=== PATIENT | female | born 1965 | race Caucasian/White ===

== ENCOUNTER 2019-08-09 23:53 | Inpatient (IN) | payer MEDICAID ==
[2019-08-10] MEDS ORDERED: Lactated Ringers 1,000 ML IV SCH (00:30)
--- NOTE | 2019-08-10 00:34 | EDM.PDOC ---
ED HPI GENERAL MEDICAL PROBLEM - General Chief Complaint: Fever Stated Complaint: [facility] Time Seen by Provider: 08/10/19 00:21 Source of Information: Reports: Patient, Old Records, RN Notes Reviewed History Limitations: Reports: No Limitations - History of Present Illness INITIAL COMMENTS - FREE TEXT/NARRATIVE: 54-year-old female presents emergency department today via p[facility] for fever, she was recently admitted to the hospital for alcoholic hepatitis was subsequently transferred to [facility] for detoxification she states she is only noticed her jaundice color for the last couple days fever today she is also taking lactulose but she has not had a dose today. She denies any other symptoms Lower Back Pain Score (Numeric/FACES): 5 - Related Data Allergies Allergy/AdvReac Type Severity Reaction Status Date / Time acetaminophen [From Tylenol] Allergy Anaphylactic Verified 08/10/19 00:09 Shock aspirin Allergy Anaphylactic Verified 08/10/19 00:09 Shock ibuprofen [From Advil] Allergy Anaphylactic Verified 08/10/19 00:09 Shock NSAIDS (Non-Steroidal Allergy Anaphylactic Verified 08/10/19 00:09 Anti-Inflamma Shock peanut Allergy Respiratory Verified 08/10/19 00:09 Distress sumatriptan [From Imitrex] Allergy Anaphylactic Verified 08/10/19 00:09 Shock sumatriptan succinate Allergy Anaphylactic Verified 08/10/19 00:09 [From Imitrex] Shock Home Meds: Home Meds Calcium Carbonate/Vitamin D3 [Calcium 600 + Vit D 400 Softgl] 1 tab PO DAILY 12/19 [History] Cyanocobalamin (Vitamin B-12) [Vitamin B-12] 1,000 mcg SL DAILY 08/10/19 [ History] Ergocalciferol (Vitamin D2) [Vitamin D2] 1.25 mg PO WEEKLY 08/10/19 [History] Folic Acid 1 mg PO DAILY 08/10/19 [History] Lactulose [Chronulac] 30 gm PO TID 08/10/19 [History] Multivits w-Min/Ferrous Gluc [Cerovite Liquid] 9 mg PO DAILY 08/10/19 [History] Rifaximin [Xifaxan] 550 mg PO BID 08/10/19 [History] Sertraline [Zoloft] 100 mg PO DAILY 08/10/19 [History] prednisoLONE [Prednisolone] 13.5 mg PO DAILY 08/10/19 [History] Past Medical History HEENT History: Reports: Impaired Vision, Other (See Below) Other HEENT History: nose injury with fall on 12/10/14, surgery to nose end of 01/14 Gastrointestinal History: Reports: GERD, Jaundice Genitourinary History: Reports: UTI, Recurrent LINING CASER History: Reports: Fibroids, Musculoskeletal History: Reports: Other (See Below) Other Musculoskeletal History: neck and back pain with fall on 12/10/14 Neurological History: Reports: Concussion, Other (See Below) Other Neuro History: off balance/unsteady Hematologic History: Reports: None, Anemia, Other (See Below) Other Hematologic History: take B12 since bypass surgery Immunologic History: Reports: None Oncologic (Cancer) History: Reports: None Dermatologic History: Reports: None - Infectious Disease History Infectious Disease History: Reports: Chicken Pox, Hepatitis A, Measles - Past Surgical History GI Surgical History: Reports: Appendectomy, Bariatric Procedure, Cholecystectomy Female Surgical History: Reports: Breast Reduction, Section Neurological Surgical History: Reports: None Musculoskeletal Surgical History: Reports: Carpal Tunnel Social & Family History - Family History Family Medical History: Noncontributory - Tobacco Use Smoking Status *Q: Never Smoker Second Hand Smoke Exposure: No - Caffeine Use Caffeine Use: Reports: Tea - Alcohol Use Days Per Week of Alcohol Use: 7 Number of Drinks Per Day: 15 Total Drinks Per Week: 105 Date of Last Drink: 07/08/19 - Recreational Drug Use Recreational Drug Use: No ED ROS GENERAL - Review of Systems Review Of Systems: See Below Constitutional: Reports: Fever, Other (Jaundice) HEENT: Reports: No Symptoms Respiratory: Reports: No Symptoms Cardiovascular: Reports: No Symptoms GI/Abdominal: Reports: No Symptoms : Reports: No Symptoms ED EXAM, GENERAL - Physical Exam Exam: See Below Free Text/Narrative:: No liver flap Exam Limited By: No Limitations Eye Exam: Bilateral Eye: Other (Scleral icterus) Respiratory/Chest: No Respiratory Distress, Lungs Clear, Normal Breath Sounds, No Accessory Muscle Use, Chest Non-Tender Cardiovascular: Regular Rate, Rhythm, No Murmur GI/Abdominal: Soft, Non-Tender, No Distention, Other (No fluid wave) Extremities: No Pedal Edema Skin Exam: Jaundice Course - Vital Signs Last Recorded V/S: Last Vital Signs Temp 99.8 F 08/10/19 02:13 Pulse 87 08/10/19 02:13 Resp 16 08/10/19 02:13 BP 102/66 08/10/19 02:13 Pulse Ox 94 L 08/10/19 02:13 - Orders/Labs/Meds Orders: Active Orders 24 hr Category Date Time Status Chest 1V Frontal [CR] Stat Exams 08/10/19 00:28 Taken CULTURE BLOOD [BC] Urgent Lab 08/10/19 00:50 Received CULTURE BLOOD [BC] Urgent Lab 08/10/19 01:30 Received Lactated Ringers [Ringers, Lactated] 1,000 ml Med 08/10/19 00:30 Active IV ASDIRECTED Lactated Ringers [Ringers, Lactated] 1,000 ml Med 08/10/19 02:16 Active IV BOLUS Lactulose [Chronulac] Med 08/10/19 02:22 Once 200 gm RECTAL ONETIME ONE Piperacillin/Tazobactam [Zosyn] 3.375 gm Med 08/10/19 02:30 Active Sodium Chloride 0.9% [Normal Saline] 50 ml IV ONETIME Potassium Chloride [KCL 20 MEQ in Water 100 ML] 20 meq Med 08/10/19 01:46 Active Premix Bag 1 bag IV ONETIME Blood Culture x2 Reflex Set [OM.PC] Urgent Oth 08/10/19 00:28 Ordered Severe Sepsis Onset Time [OM.PC] Stat Oth 08/10/19 00:28 Ordered Medication Orders Lactated Ringer's (Ringers, Lactated) 1,000 mls @ 999 mls/hr IV ASDIRECTED CLEO Last Admin: 08/10/19 00:40 Dose: 999 mls/hr Potassium Chloride 20 meq/ (Premix) 100 mls @ 50 mls/hr IV ONETIME ONE Stop: 08/10/19 03:45 Last Admin: 08/10/19 02:11 Dose: 50 mls/hr Lactated Ringer's (Ringers, Lactated) 1,000 mls @ 250 mls/hr IV BOLUS ONE Stop: 08/10/19 06:15 Last Admin: 08/10/19 02:25 Dose: 250 mls/hr Piperacillin Sod/Tazobactam (Sod 3.375 gm/ Sodium Chloride) 50 mls @ 100 mls/ hr IV ONETIME CLEO Lactulose (Chronulac) 200 gm RECTAL ONETIME ONE Stop: 08/10/19 02:23 Labs: Laboratory Tests 08/10/19 08/10/19 08/10/19 Range/Units 00:30 00:30 00:30 WBC 6.4 (4.5-11.0) K/uL RBC 2.63 L (3.30-5.50) M/uL Hgb 9.3 L (12.0-15.0) g/dL Hct 28.5 L (36.0-48.0) % MCV 108 H (80-98) fL MCH 35 H (27-31) pg MCHC 33 (32-36) % Plt Count 135 L (150-400) K/uL Neut % (Auto) 81 H (36-66) % Lymph % (Auto) 6 L (24-44) % Titus % (Auto) 13 H (2-6) % Eos % (Auto) 0 L (2-4) % Baso % (Auto) 0 (0-1) % PT 13.3 H (9.5-12.0) sec INR 1.25 H (0.80-1.20) Sodium 138 L (140-148) mmol/L Potassium 2.3 L* (3.6-5.2) mmol/L Chloride 101 (100-108) mmol/L Carbon Dioxide 28 (21-32) mmol/L Anion Gap 11.3 (5.0-14.0) mmol/L BUN 12 (7-18) mg/dL Creatinine 0.8 (0.6-1.0) mg/dL Est Cr Clr Drug Dosing TNP Estimated GFR (MDRD) > 60 (>60) Glucose 92 (74-106) mg/dL Lactic Acid (0.4-2.0) mmol/L Calcium 7.5 L (8.5-10.1) mg/dL Total Bilirubin 6.8 H (0.2-1.0) mg/dL AST 113 H (15-37) U/L ALT 106 H (12-78) U/L Alkaline Phosphatase 216 H (46-116) U/L Ammonia (11-32) mmol/L C-Reactive Protein 8.49 H (0.0-0.3) mg/dL Total Protein 5.4 L (6.4-8.2) g/dL Albumin 1.9 L (3.4-5.0) g/dL Globulin 3.5 (2.3-3.5) g/dL Albumin/Globulin Ratio 0.5 L (1.2-2.2) Lipase 94 (73-393) U/L Procalcitonin ng/mL Urine Color (YELLOW) Urine Appearance (CLEAR) Urine pH (5.0-8.0) Ur Specific [place] (1.008-1.030) Urine Protein (NEGATIVE) mg/dL Urine Glucose (UA) (NEGATIVE) mg/dL Urine Ketones (NEGATIVE) mg/dL Urine Occult Blood (NEGATIVE) Urine Nitrite (NEGATIVE) Urine Bilirubin (NEGATIVE) Urine Urobilinogen (0.2-1.0) EU/dL Ur Leukocyte Esterase (NEGATIVE) Urine RBC (0-5) Urine WBC (0-5) Ur Epithelial Cells Amorphous Sediment Urine Bacteria Urine Mucus 08/10/19 08/10/19 08/10/19 Range/Units 00:30 00:30 00:30 WBC (4.5-11.0) K/uL RBC (3.30-5.50) M/uL Hgb (12.0-15.0) g/dL Hct (36.0-48.0) % MCV (80-98) fL MCH (27-31) pg MCHC (32-36) % Plt Count (150-400) K/uL Neut % (Auto) (36-66) % Lymph % (Auto) (24-44) % Titus % (Auto) (2-6) % Eos % (Auto) (2-4) % Baso % (Auto) (0-1) % PT (9.5-12.0) sec INR (0.80-1.20) Sodium (140-148) mmol/L Potassium (3.6-5.2) mmol/L Chloride (100-108) mmol/L Carbon Dioxide (21-32) mmol/L Anion Gap (5.0-14.0) mmol/L BUN (7-18) mg/dL Creatinine (0.6-1.0) mg/dL Est Cr Clr Drug Dosing Estimated GFR (MDRD) (>60) Glucose (74-106) mg/dL Lactic Acid 1.7 (0.4-2.0) mmol/L Calcium (8.5-10.1) mg/dL Total Bilirubin (0.2-1.0) mg/dL AST (15-37) U/L ALT (12-78) U/L Alkaline Phosphatase (46-116) U/L Ammonia 61 H (11-32) mmol/L C-Reactive Protein (0.0-0.3) mg/dL Total Protein (6.4-8.2) g/dL Albumin (3.4-5.0) g/dL Globulin (2.3-3.5) g/dL Albumin/Globulin Ratio (1.2-2.2) Lipase (73-393) U/L Procalcitonin 2.49 H* ng/mL Urine Color (YELLOW) Urine Appearance (CLEAR) Urine pH (5.0-8.0) Ur Specific [place] (1.008-1.030) Urine Protein (NEGATIVE) mg/dL Urine Glucose (UA) (NEGATIVE) mg/dL Urine Ketones (NEGATIVE) mg/dL Urine Occult Blood (NEGATIVE) Urine Nitrite (NEGATIVE) Urine Bilirubin (NEGATIVE) Urine Urobilinogen (0.2-1.0) EU/dL Ur Leukocyte Esterase (NEGATIVE) Urine RBC (0-5) Urine WBC (0-5) Ur Epithelial Cells Amorphous Sediment Urine Bacteria Urine Mucus 08/10/19 Range/Units 00:49 WBC (4.5-11.0) K/uL RBC (3.30-5.50) M/uL Hgb (12.0-15.0) g/dL Hct (36.0-48.0) % MCV (80-98) fL MCH (27-31) pg MCHC (32-36) % Plt Count (150-400) K/uL Neut % (Auto) (36-66) % Lymph % (Auto) (24-44) % Titus % (Auto) (2-6) % Eos % (Auto) (2-4) % Baso % (Auto) (0-1) % PT (9.5-12.0) sec INR (0.80-1.20) Sodium (140-148) mmol/L Potassium (3.6-5.2) mmol/L Chloride (100-108) mmol/L Carbon Dioxide (21-32) mmol/L Anion Gap (5.0-14.0) mmol/L BUN (7-18) mg/dL Creatinine (0.6-1.0) mg/dL Est Cr Clr Drug Dosing Estimated GFR (MDRD) (>60) Glucose (74-106) mg/dL Lactic Acid (0.4-2.0) mmol/L Calcium (8.5-10.1) mg/dL Total Bilirubin (0.2-1.0) mg/dL AST (15-37) U/L ALT (12-78) U/L Alkaline Phosphatase (46-116) U/L Ammonia (11-32) mmol/L C-Reactive Protein (0.0-0.3) mg/dL Total Protein (6.4-8.2) g/dL Albumin (3.4-5.0) g/dL Globulin (2.3-3.5) g/dL Albumin/Globulin Ratio (1.2-2.2) Lipase (73-393) U/L Procalcitonin ng/mL Urine Color Gage A (YELLOW) Urine Appearance Clear (CLEAR) Urine pH 7.0 (5.0-8.0) Ur Specific [place] 1.020 (1.008-1.030) Urine Protein 100 H (NEGATIVE) mg/dL Urine Glucose (UA) Negative (NEGATIVE) mg/dL Urine Ketones Negative (NEGATIVE) mg/dL Urine Occult Blood Small H (NEGATIVE) Urine Nitrite Negative (NEGATIVE) Urine Bilirubin Moderate H (NEGATIVE) Urine Urobilinogen 0.2 (0.2-1.0) EU/dL Ur Leukocyte Esterase Trace H (NEGATIVE) Urine RBC 5-10 H (0-5) Urine WBC 0-5 (0-5) Ur Epithelial Cells Few Amorphous Sediment Few Urine Bacteria Not seen Urine Mucus Not seen Meds: Medications Generic Name Dose Route Start Last Admin Trade Name Freq PRN Reason Stop Dose Admin Lactated Ringer's 1,000 mls @ 999 mls/hr 08/10/19 00:30 08/10/19 00:40 Ringers, Lactated IV 999 mls/hr ASDIRECTED CLEO Administration Potassium Chloride 20 meq/ 100 mls @ 50 mls/hr 08/10/19 01:46 08/10/19 02:11 Premix IV 08/10/19 03:45 50 mls/hr ONETIME ONE Administration Lactated Ringer's 1,000 mls @ 250 mls/hr 08/10/19 02:16 08/10/19 02:25 Ringers, Lactated IV 08/10/19 06:15 250 mls/hr BOLUS ONE Administration Piperacillin Sod/Tazobactam 50 mls @ 100 mls/hr 08/10/19 02:30 Sod 3.375 gm/ Sodium Chloride IV ONETIME CLEO Lactulose 200 gm 08/10/19 02:22 Chronulac RECTAL 08/10/19 02:23 ONETIME ONE Discontinued Medications Generic Name Dose Route Start Last Admin Trade Name Freq PRN Reason Stop Dose Admin Lactulose 10 gm 08/10/19 02:22 Chronulac PO 08/10/19 02:23 ONETIME ONE Lidocaine HCl 2 ml 08/10/19 01:47 08/10/19 02:27 Xylocaine-Mpf 1% INJECT 08/10/19 01:48 2 ml ONETIME ONE Administration Ondansetron HCl 4 mg 08/10/19 02:15 Zofran IVPUSH 08/10/19 02:16 ONETIME ONE Potassium Chloride 40 meq 08/10/19 01:44 08/10/19 02:11 Klor-Con M20 PO 08/10/19 01:45 Not Given ONETIME ONE - Re-Assessments/Exams Free Text/Narrative Re-Assessment/Exam: 08/10/19 02:32 Meld score is 16 Departure - Departure Time of Disposition: 02:46 Disposition: Admitted As Inpatient 64 Condition: Poor Clinical Impression: Encephalitis - Discharge Information Referrals: PCP,None [Primary Care Provider] - Forms: ED Department Discharge Sepsis Event Note (ED) - Evaluation Sepsis Screening Result: Possible Severe Sepsis Risk - Focused Exam Vital Signs: Vital Signs Temp Pulse Resp BP Pulse Ox 08/10/19 02:13 99.8 F 87 16 102/66 94 L 08/10/19 00:06 102.4 F H 109 H 16 86/44 L 98 - My Orders Last 24 Hours: My Active Orders 08/10/19 00:28 Chest 1V Frontal [CR] Stat Blood Culture x2 Reflex Set [OM.PC] Urgent Severe Sepsis Onset Time [OM.PC] Stat 08/10/19 00:30 Lactated Ringers [Ringers, Lactated] 1,000 ml IV ASDIRECTED 08/10/19 00:50 CULTURE BLOOD [BC] Urgent 08/10/19 01:30 CULTURE BLOOD [BC] Urgent 08/10/19 01:46 Potassium Chloride [KCL 20 MEQ in Water 100 ML] 20 meq Premix Bag 1 bag IV ONETIME 08/10/19 02:16 Lactated Ringers [Ringers, Lactated] 1,000 ml IV BOLUS 08/10/19 02:22 Lactulose [Chronulac] 200 gm RECTAL ONETIME ONE 08/10/19 02:30 Piperacillin/Tazobactam [Zosyn] 3.375 gm Sodium Chloride 0.9% [Normal Saline] 50 ml IV ONETIME - Assessment/Plan Last 24 Hours: My Active Orders 08/10/19 00:28 Chest 1V Frontal [CR] Stat Blood Culture x2 Reflex Set [OM.PC] Urgent Severe Sepsis Onset Time [OM.PC] Stat 08/10/19 00:30 Lactated Ringers [Ringers, Lactated] 1,000 ml IV ASDIRECTED 08/10/19 00:50 CULTURE BLOOD [BC] Urgent 08/10/19 01:30 CULTURE BLOOD [BC] Urgent 08/10/19 01:46 Potassium Chloride [KCL 20 MEQ in Water 100 ML] 20 meq Premix Bag 1 bag IV ONETIME 08/10/19 02:16 Lactated Ringers [Ringers, Lactated] 1,000 ml IV BOLUS 08/10/19 02:22 Lactulose [Chronulac] 200 gm RECTAL ONETIME ONE 08/10/19 02:30 Piperacillin/Tazobactam [Zosyn] 3.375 gm Sodium Chloride 0.9% [Normal Saline] 50 ml IV ONETIME Plan: Assessment Acuity = acute Site and laterality = hepatic encephalopathy concern for underlying infection Etiology = EtOH Manifestations = fever no known source Location of injury = Home Lab values = hemoglobin low at 9.3 consistent with macrocytic anemia INR elevated 1.25 sodium low at 132 consistent hyponatremia potassium low 2.3 consistent with hypokalemia lactic acid normal 1.7 total bilirubin elevated 6.8 consistent with hyperbilirubinemia AST at 113 ALT at 106 consistent with elevated liver enzymes alk phos elevated to 16 ammonia level is elevated at 61 CRP elevated 8.49, procalcitonin elevated 2.49 concern for underlying infection urinalysis reveals RBCs 5-10 consistent hematuria chest x-ray I did review films myself I cannot appreciate any acute process, the official read from radiology is pending Plan Call discussed case with hospitalist on-call at [phone] currently agreed to come and evaluate the patient in the emergency department for admission thus far she has been given 2 L of fluid 20 mEq potassium replacement lactulose both p.o. and DC initiated as well as 1 dose of Zosyn blood cultures are pending This note was dictated using [employer] voice recognition software please call with any questions on syntax or grammar.
[2019-08-10] MEDS ORDERED: Potassium Chloride 20 MEQ Tab.ER PO ONE (01:44)
[2019-08-10] MEDS ORDERED: Potassium Chloride 20 MEQ in Premix Bag 1 BAG IV ONE (01:46)
[2019-08-10] MEDS ORDERED: Ondansetron 4 MG/2 ML SDV IVPUSH ONE (02:15)
[2019-08-10] MEDS ORDERED: Lactated Ringers 1,000 ML IV ONE (02:16)
[2019-08-10] MEDS ORDERED: Lactulose Soln 10 GM/15 ML 15 ML UD Cup PO ONE (02:22)
[2019-08-10] MEDS ORDERED: Lactulose Soln 10 GM/15 ML ML 473 ML Bottle RECTAL ONE (02:22)
[2019-08-10] MEDS ORDERED: Piperacillin/Tazobactam 3.375 GM in Sodium Chloride 0.9% 50 ML IV SCH (02:30)
[2019-08-10] MEDS ORDERED: Piperacillin/Tazobactam 3.375 GM in Sodium Chloride 0.9% 50 ML IV ONE (02:41)
--- NOTE | 2019-08-10 04:24 | PCM.HP.2 ---
H&P History of Present Illness - General Date of Service: 08/10/19 Admit Problem/Dx: Admission Diagnosis/Problem Admission Diagnosis/Problem Liver failure Source of Information: Patient, Halfway Records History Limitations: Reports: No Limitations - History of Present Illness Initial Comments - Free Text/Narative: She is a 54 year old white female who was in [facility] for liver failure and hepatitis due to alcohol use she says drinking 1/2 liter daily. She was sent to [facility] for treatment. She walked down the [place] naked and put on a man's clothes and got in his bed and was confused and was then sent to the ER. She was icteric. Lower Back Pain Score (Numeric/FACES): 5 - Related Data Allergies/Adverse Reactions: Allergies Allergy/AdvReac Type Severity Reaction Status Date / Time acetaminophen [From Tylenol] Allergy Anaphylactic Verified 08/10/19 07:43 Shock apple Allergy Swelling Verified 08/10/19 07:43 aspirin Allergy Anaphylactic Verified 08/10/19 07:43 Shock ibuprofen [From Advil] Allergy Anaphylactic Verified 08/10/19 07:43 Shock NSAIDS (Non-Steroidal Allergy Anaphylactic Verified 08/10/19 07:43 Anti-Inflamma Shock peanut Allergy Respiratory Verified 08/10/19 07:43 Distress sumatriptan [From Imitrex] Allergy Anaphylactic Verified 08/10/19 07:43 Shock sumatriptan succinate Allergy Anaphylactic Verified 08/10/19 07:43 [From Imitrex] Shock Home Medications: Home Meds Calcium Carbonate/Vitamin D3 [Calcium 600 + Vit D 400 Softgl] 1 tab PO DAILY 12/19 [History] Cyanocobalamin (Vitamin B-12) [Vitamin B-12] 1,000 mcg SL DAILY 08/10/19 [ History] Ergocalciferol (Vitamin D2) [Vitamin D2] 1.25 mg PO WEEKLY 08/10/19 [History] Folic Acid 1 mg PO DAILY 08/10/19 [History] Lactulose [Chronulac] 30 gm PO TID 08/10/19 [History] Multivit with Iron,Minerals [Complete Senior] 1 tab PO DAILY 08/10/19 [History] Rifaximin [Xifaxan] 550 mg PO BID 08/10/19 [History] Sertraline [Zoloft] 100 mg PO DAILY 08/10/19 [History] prednisoLONE [Prednisolone] 13.5 mg PO DAILY 08/10/19 [History] prednisoLONE [Prednisolone] 60 ml PO DAILY 08/10/19 [History] traMADol [Ultram] 50 mg PO BEDTIME PRN 08/10/19 [History] Past Medical History HEENT History: Reports: Impaired Vision, Other (See Below) Other HEENT History: nose injury with fall on 12/10/14, surgery to nose end of 01/14 Gastrointestinal History: Reports: GERD, Jaundice Genitourinary History: Reports: UTI, Recurrent [employer] History: Reports: Fibroids, Musculoskeletal History: Reports: Other (See Below) Other Musculoskeletal History: neck and back pain with fall on 12/10/14 Neurological History: Reports: Concussion, Other (See Below) Other Neuro History: off balance/unsteady Hematologic History: Reports: None, Anemia, Other (See Below) Other Hematologic History: take B12 since bypass surgery Immunologic History: Reports: None Oncologic (Cancer) History: Reports: None Dermatologic History: Reports: None - Infectious Disease History Infectious Disease History: Reports: Chicken Pox, Hepatitis A, Measles - Past Surgical History GI Surgical History: Reports: Appendectomy, Bariatric Procedure, Cholecystectomy Female Surgical History: Reports: Breast Reduction, Section Neurological Surgical History: Reports: None Musculoskeletal Surgical History: Reports: Carpal Tunnel Social & Family History - Family History Family Medical History: Noncontributory - Tobacco Use Smoking Status *Q: Never Smoker Second Hand Smoke Exposure: No - Caffeine Use Caffeine Use: Reports: Tea - Alcohol Use Days Per Week of Alcohol Use: 7 Number of Drinks Per Day: 15 Total Drinks Per Week: 105 Date of Last Drink: 07/08/19 - Recreational Drug Use Recreational Drug Use: No H&P Review of Systems - Review of Systems: Review Of Systems: See Below General: Reports: No Symptoms HEENT: Reports: No Symptoms Pulmonary: Reports: No Symptoms Cardiovascular: Reports: No Symptoms Gastrointestinal: Reports: Diarrhea Genitourinary: Reports: No Symptoms Musculoskeletal: Reports: No Symptoms Skin: Reports: No Symptoms Psychiatric: Reports: No Symptoms Neurological: Reports: No Symptoms Hematologic/Lymphatic: Reports: No Symptoms Immunologic: Reports: No Symptoms Exam - Exam Exam: See Below - Vital Signs Vital Signs: Last Vital Signs Temp 99.8 F 08/10/19 02:13 Pulse 87 08/10/19 02:13 Resp 16 08/10/19 02:13 BP 102/66 08/10/19 02:13 Pulse Ox 94 L 08/10/19 02:13 Weight: 122 lb - Exam General: Alert, Oriented, Cooperative HEENT: PERRLA, EACs Clear, EOMI, Hearing Intact, Mucosa Moist & [place], Nares Patent, Normal Nasal Septum, Pupils Equal, Pupils Reactive, Scleral Icterus Neck: Supple, Trachea Midline Lungs: Clear to Auscultation, Normal Respiratory Effort Cardiovascular: Regular Rate, Regular Rhythm Back Exam: Normal Inspection Extremities: Normal Inspection Peripheral Pulses: 1+: Radial (L), Radial (R) Skin: Warm, Dry, Intact, Other (icteric) Neurological: Cranial Nerves Intact, Reflexes Equal Bilateral, Strength Equal Bilateral Neuro Extensive - Mental Status: Alert, Oriented x3 Neuro Extensive - Motor, Sensory, Reflexes: CN II-XII Intact, Normal Gait DTR: 1+: Bicep (L), Bicep (R), Patella (L), Patella (R) Psychiatric: Alert - Patient Data Lab Results Last 24 hrs: Laboratory Results - last 24 hr 08/10/19 08/10/19 08/10/19 Range/Units 00:30 00:30 00:30 WBC 6.4 (4.5-11.0) K/uL RBC 2.63 L (3.30-5.50) M/uL Hgb 9.3 L (12.0-15.0) g/dL Hct 28.5 L (36.0-48.0) % MCV 108 H (80-98) fL MCH 35 H (27-31) pg MCHC 33 (32-36) % Plt Count 135 L (150-400) K/uL Neut % (Auto) 81 H (36-66) % Lymph % (Auto) 6 L (24-44) % Morris % (Auto) 13 H (2-6) % Eos % (Auto) 0 L (2-4) % Baso % (Auto) 0 (0-1) % PT 13.3 H (9.5-12.0) sec INR 1.25 H (0.80-1.20) Sodium 138 L (140-148) mmol/L Potassium 2.3 L* (3.6-5.2) mmol/L Chloride 101 (100-108) mmol/L Carbon Dioxide 28 (21-32) mmol/L Anion Gap 11.3 (5.0-14.0) mmol/L BUN 12 (7-18) mg/dL Creatinine 0.8 (0.6-1.0) mg/dL Est Cr Clr Drug Dosing TNP Estimated GFR (MDRD) > 60 (>60) Glucose 92 (74-106) mg/dL Lactic Acid (0.4-2.0) mmol/L Calcium 7.5 L (8.5-10.1) mg/dL Magnesium (1.8-2.4) mg/dL Total Bilirubin 6.8 H (0.2-1.0) mg/dL AST 113 H (15-37) U/L ALT 106 H (12-78) U/L Alkaline Phosphatase 216 H (46-116) U/L Ammonia (11-32) mmol/L C-Reactive Protein 8.49 H (0.0-0.3) mg/dL Total Protein 5.4 L (6.4-8.2) g/dL Albumin 1.9 L (3.4-5.0) g/dL Globulin 3.5 (2.3-3.5) g/dL Albumin/Globulin Ratio 0.5 L (1.2-2.2) Lipase 94 (73-393) U/L Procalcitonin ng/mL Urine Color (YELLOW) Urine Appearance (CLEAR) Urine pH (5.0-8.0) Ur Specific Sarah (1.008-1.030) Urine Protein (NEGATIVE) mg/dL Urine Glucose (UA) (NEGATIVE) mg/dL Urine Ketones (NEGATIVE) mg/dL Urine Occult Blood (NEGATIVE) Urine Nitrite (NEGATIVE) Urine Bilirubin (NEGATIVE) Urine Urobilinogen (0.2-1.0) EU/dL Ur Leukocyte Esterase (NEGATIVE) Urine RBC (0-5) Urine WBC (0-5) Ur Epithelial Cells Amorphous Sediment Urine Bacteria Urine Mucus 08/10/19 08/10/19 08/10/19 Range/Units 00:30 00:30 00:30 WBC (4.5-11.0) K/uL RBC (3.30-5.50) M/uL Hgb (12.0-15.0) g/dL Hct (36.0-48.0) % MCV (80-98) fL MCH (27-31) pg MCHC (32-36) % Plt Count (150-400) K/uL Neut % (Auto) (36-66) % Lymph % (Auto) (24-44) % Morris % (Auto) (2-6) % Eos % (Auto) (2-4) % Baso % (Auto) (0-1) % PT (9.5-12.0) sec INR (0.80-1.20) Sodium (140-148) mmol/L Potassium (3.6-5.2) mmol/L Chloride (100-108) mmol/L Carbon Dioxide (21-32) mmol/L Anion Gap (5.0-14.0) mmol/L BUN (7-18) mg/dL Creatinine (0.6-1.0) mg/dL Est Cr Clr Drug Dosing Estimated GFR (MDRD) (>60) Glucose (74-106) mg/dL Lactic Acid 1.7 (0.4-2.0) mmol/L Calcium (8.5-10.1) mg/dL Magnesium (1.8-2.4) mg/dL Total Bilirubin (0.2-1.0) mg/dL AST (15-37) U/L ALT (12-78) U/L Alkaline Phosphatase (46-116) U/L Ammonia 61 H (11-32) mmol/L C-Reactive Protein (0.0-0.3) mg/dL Total Protein (6.4-8.2) g/dL Albumin (3.4-5.0) g/dL Globulin (2.3-3.5) g/dL Albumin/Globulin Ratio (1.2-2.2) Lipase (73-393) U/L Procalcitonin 2.49 H* ng/mL Urine Color (YELLOW) Urine Appearance (CLEAR) Urine pH (5.0-8.0) Ur Specific Sarah (1.008-1.030) Urine Protein (NEGATIVE) mg/dL Urine Glucose (UA) (NEGATIVE) mg/dL Urine Ketones (NEGATIVE) mg/dL Urine Occult Blood (NEGATIVE) Urine Nitrite (NEGATIVE) Urine Bilirubin (NEGATIVE) Urine Urobilinogen (0.2-1.0) EU/dL Ur Leukocyte Esterase (NEGATIVE) Urine RBC (0-5) Urine WBC (0-5) Ur Epithelial Cells Amorphous Sediment Urine Bacteria Urine Mucus 08/10/19 08/10/19 Range/Units 00:49 02:47 WBC (4.5-11.0) K/uL RBC (3.30-5.50) M/uL Hgb (12.0-15.0) g/dL Hct (36.0-48.0) % MCV (80-98) fL MCH (27-31) pg MCHC (32-36) % Plt Count (150-400) K/uL Neut % (Auto) (36-66) % Lymph % (Auto) (24-44) % Morris % (Auto) (2-6) % Eos % (Auto) (2-4) % Baso % (Auto) (0-1) % PT (9.5-12.0) sec INR (0.80-1.20) Sodium (140-148) mmol/L Potassium (3.6-5.2) mmol/L Chloride (100-108) mmol/L Carbon Dioxide (21-32) mmol/L Anion Gap (5.0-14.0) mmol/L BUN (7-18) mg/dL Creatinine (0.6-1.0) mg/dL Est Cr Clr Drug Dosing Estimated GFR (MDRD) (>60) Glucose (74-106) mg/dL Lactic Acid (0.4-2.0) mmol/L Calcium (8.5-10.1) mg/dL Magnesium 1.3 L (1.8-2.4) mg/dL Total Bilirubin (0.2-1.0) mg/dL AST (15-37) U/L ALT (12-78) U/L Alkaline Phosphatase (46-116) U/L Ammonia (11-32) mmol/L C-Reactive Protein (0.0-0.3) mg/dL Total Protein (6.4-8.2) g/dL Albumin (3.4-5.0) g/dL Globulin (2.3-3.5) g/dL Albumin/Globulin Ratio (1.2-2.2) Lipase (73-393) U/L Procalcitonin ng/mL Urine Color [place] A (YELLOW) Urine Appearance Clear (CLEAR) Urine pH 7.0 (5.0-8.0) Ur Specific Sarah 1.020 (1.008-1.030) Urine Protein 100 H (NEGATIVE) mg/dL Urine Glucose (UA) Negative (NEGATIVE) mg/dL Urine Ketones Negative (NEGATIVE) mg/dL Urine Occult Blood Small H (NEGATIVE) Urine Nitrite Negative (NEGATIVE) Urine Bilirubin Moderate H (NEGATIVE) Urine Urobilinogen 0.2 (0.2-1.0) EU/dL Ur Leukocyte Esterase Trace H (NEGATIVE) Urine RBC 5-10 H (0-5) Urine WBC 0-5 (0-5) Ur Epithelial Cells Few Amorphous Sediment Few Urine Bacteria Not seen Urine Mucus Not seen Result Diagrams: 08/11/19 04:05 08/11/19 04:05 Sepsis Event Note - Evaluation Sepsis Screening Result: Possible Severe Sepsis Risk - Focused Exam Vital Signs: Vital Signs Temp Pulse Resp BP Pulse Ox 08/10/19 02:13 99.8 F 87 16 102/66 94 L 08/10/19 00:06 102.4 F H 109 H 16 86/44 L 98 Date Exam was Performed: 08/11/19 Time Exam was Performed: 12:39 Problem List Initiated/Reviewed/Updated: Yes Orders Last 24hrs: Active Orders 24 hr Category Date Time Status Patient Status [ADT] Routine ADT 08/10/19 03:56 Ordered Ambulate [RC] QID Care 08/10/19 03:56 Ordered Height and Weight [RC] DAILY Care 08/10/19 03:56 Ordered Intake and Output [RC] QSHIFT Care 08/10/19 03:58 Ordered Oxygen Therapy [RC] PRN Care 08/10/19 03:56 Ordered Up to Chair [RC] QID Care 08/10/19 03:56 Ordered VTE/DVT Education [RC] Per Unit Routine Care 08/10/19 03:56 Ordered Vital Signs [RC] Q4H Care 08/10/19 03:56 Ordered Regular Diet [DIET] Diet 08/10/19 Breakfast Ordered Chest 1V Frontal [CR] Stat Exams 08/10/19 00:28 Taken CULTURE BLOOD [BC] Urgent Lab 08/10/19 00:50 Received CULTURE BLOOD [BC] Urgent Lab 08/10/19 01:30 Received Calcium Carbonate/Vitamin D3 [Calcium 600 + Vit D 400 Med 08/10/19 09:00 Ordered Softgl] 1 tab PO DAILY Cyanocobalamin (Vitamin B-12) [Vitamin B-12] Med 08/10/19 09:00 Ordered 1,000 mcg SL DAILY Ergocalciferol (Vitamin D2) [Vitamin D2] Med 08/10/19 04:15 Ordered 1.25 mg PO WEEKLY Folic Acid Med 08/10/19 09:00 Ordered 1 mg PO DAILY Lactated Ringers [Ringers, Lactated] 1,000 ml Med 08/10/19 00:30 Active IV ASDIRECTED Lactated Ringers [Ringers, Lactated] 1,000 ml Med 08/10/19 02:16 Active IV BOLUS Lactulose [Chronulac] Med 08/10/19 09:00 Ordered 40 gm PO TID Lactulose [Chronulac] Med 08/10/19 09:00 Ordered 40 gm PO TID Multivits w-Min/Ferrous Gluc [Cerovite Liquid] Med 08/10/19 09:00 Ordered 9 mg PO DAILY Rifaximin [Xifaxan] Med 08/10/19 09:00 Ordered 550 mg PO BID Sertraline [Zoloft] Med 08/10/19 09:00 Ordered 100 mg PO DAILY prednisoLONE [Prednisolone] Med 08/10/19 09:00 Ordered 13.5 mg PO DAILY Blood Culture x2 Reflex Set [OM.PC] Urgent Oth 08/10/19 00:28 Ordered Severe Sepsis Onset Time [OM.PC] Stat Oth 08/10/19 00:28 Ordered Resuscitation Status Routine Resus Stat 08/10/19 03:56 Ordered Medication Orders Folic Acid (Folic Acid) 1 mg PO DAILY CLEO Lactated Ringer's (Ringers, Lactated) 1,000 mls @ 999 mls/hr IV ASDIRECTED CLEO Last Admin: 08/10/19 00:40 Dose: 999 mls/hr Lactated Ringer's (Ringers, Lactated) 1,000 mls @ 250 mls/hr IV BOLUS ONE Stop: 08/10/19 06:15 Last Admin: 08/10/19 02:25 Dose: 250 mls/hr Lactulose (Chronulac) 40 gm PO TID CLEO Lactulose (Chronulac) 40 gm PO TID [facility] Non-Formulary Medication (Calcium Carbonate/Vitamin D3 [Calcium 600 + Vit D 400 Softgl]) 1 tab PO DAILY CLEO Non-Formulary Medication (Cyanocobalamin (Vitamin B-12) [Vitamin B-12]) 1,000 mcg SL DAILY [facility] Non-Formulary Medication (Ergocalciferol (Vitamin D2) [Vitamin D2]) 1.25 mg PO WEEKLY CLEO Non-Formulary Medication (Multivits W-Min/Ferrous Gluc [Cerovite Liquid]) 9 mg PO DAILY [facility] Non-Formulary Medication (Prednisolone [Prednisolone]) 13.5 mg PO DAILY [facility] Non-Formulary Medication (Sertraline [Zoloft]) 100 mg PO DAILY [facility] Rifaximin (Xifaxan) 550 mg PO BID [facility] Assessment/Plan Comment:: Assessment/Plan. #1. Alcoholic liver failure with alcoholic hepatitis: Will increase lactulose and follow labs #2. Hypokalemia: Correct with supplemental Potassium #3. History of depression: Will continue with sertraline. #4. Low back pain. Will evaluate while in the hospitl.
[2019-08-10] MEDS ORDERED: Dextrose 5%-0.9% NaCl 1,000 ML IV SCH (04:45)
[2019-08-10] MEDS: Calcium Carbonate/Vitamin D3 1500 MG-400 Units Tab PO SCH (08:19)
[2019-08-10] MEDS: Folic Acid 1 MG Tab PO SCH (08:19)
[2019-08-10] MEDS: Cyanocobalamin (Vitamin B12) 1,000 MCG Tab PO SCH (08:19)
[2019-08-10] MEDS: Rifaximin 550 MG Tab PO SCH ×2 (08:19→21:02)
[2019-08-10] MEDS: Sertraline 50 MG Tab PO SCH (08:20)
[2019-08-10] MEDS: Lactulose Soln 10 GM/15 ML 15 ML UD Cup PO SCH ×3 (08:22→21:02)
[2019-08-10] MEDS: prednisoLONE 15 MG/5 ML Soln UD Cup PO SCH (08:24)
[2019-08-10] MEDS ORDERED: prednisoLONE 15 MG/5 ML Soln UD Cup PO SCH (09:00)
[2019-08-10] MEDS ORDERED: MULTIVITS W MIN PO SCH (09:00)
[2019-08-10] MEDS ORDERED: Lactulose Soln 10 GM/15 ML 15 ML UD Cup PO SCH (09:00)
[2019-08-10] MEDS ORDERED: FERROUS GLUC PO SCH (09:00)
--- NOTE | 2019-08-10 09:09 | CR ---
CHEST: Portable 08/10/2019 at 1:01 AM CLINICAL HISTORY:Fever COMPARISON:None FINDINGS: The heart size, pulmonary vascularity and hilar structures are normal. No infiltrate effusion or pneumothorax is seen. IMPRESSION: No acute cardiopulmonary process.
[2019-08-10] MEDS ORDERED: traMADol 50 MG Tab PO PRN (09:49)
[2019-08-10] MEDS: Multivitamins with Iron/Calcium/Folic Acid/Minerals Tab PO SCH (09:56)
[2019-08-10] MEDS ORDERED: LORazepam 2 MG/ML SDV IV SCH (10:00)
[2019-08-10] MEDS ORDERED: traMADol 50 MG Tab PO ONE (11:30)
[2019-08-10] MEDS ORDERED: cefTRIAXone 1 GM in Sodium Chloride 0.9% 50 ML IV SCH (15:00)
[2019-08-10] MEDS: Potassium Chloride 20 MEQ, Lidocaine 1% 2 ML in Sodium Chloride 0.9% 100 ML IV SCH ×2 (15:38→17:49)
[2019-08-10] MEDS: Potassium Chloride 20 MEQ Tab.ER PO SCH ×2 (21:03→22:18)
[2019-08-11] MEDS: Potassium Chloride 20 MEQ Tab.ER PO SCH ×2 (00:26→02:27)
[2019-08-11] MEDS: Lactulose Soln 10 GM/15 ML 15 ML UD Cup PO SCH (08:20)
[2019-08-11] MEDS: Multivitamins with Iron/Calcium/Folic Acid/Minerals Tab PO SCH (08:21)
[2019-08-11] MEDS: Calcium Carbonate/Vitamin D3 1500 MG-400 Units Tab PO SCH (08:21)
[2019-08-11] MEDS: prednisoLONE 15 MG/5 ML Soln UD Cup PO SCH (08:21)
[2019-08-11] MEDS: Rifaximin 550 MG Tab PO SCH (08:21)
[2019-08-11] MEDS: Folic Acid 1 MG Tab PO SCH (08:21)
[2019-08-11] MEDS: Cyanocobalamin (Vitamin B12) 1,000 MCG Tab PO SCH (08:21)
[2019-08-11] MEDS: Sertraline 50 MG Tab PO SCH (08:21)
[2019-08-11] MEDS ORDERED: Cholecalciferol (Vitamin D3) 50,000 Unit Cap PO SCH (09:00)
--- NOTE | 2019-08-11 09:01 | CR ---
Lumbar Spine 2 or 3V CLINICAL HISTORY: Back pain FINDINGS: The vertebral body heights are maintained. There is minimal spondylosis. Disc space heights are fairly well-preserved. There is a grade 1 retrolisthesis of L5 on S1. There is some mild osteoarthropathy in the lower lumbar facets. Impression: Minimal degenerative disc disease Facet osteoarthropathy in the lower lumbar spine with grade 1 retrolisthesis of L5 on S1
--- NOTE | 2019-08-11 12:46 | PCM.PN ---
- General Info Date of Service: 08/11/19 Subjective Update: She is feeling good with mild low back pain. Functional Status: Reports: Pain Controlled - Review of Systems General: Reports: No Symptoms HEENT: Reports: No Symptoms Pulmonary: Reports: No Symptoms Cardiovascular: Reports: No Symptoms Gastrointestinal: Reports: No Symptoms Genitourinary: Reports: No Symptoms Musculoskeletal: Reports: No Symptoms Skin: Reports: Pruritis Neurological: Reports: No Symptoms Psychiatric: Reports: No Symptoms - Patient Data Vitals - Most Recent: Last Vital Signs Temp 97.7 F 08/11/19 10:56 Pulse 67 08/11/19 10:56 Resp 16 08/11/19 10:56 BP 114/73 08/11/19 10:56 Pulse Ox 100 08/11/19 10:56 Weight - Most Recent: 122 lb I&O - Last 24 Hours: Intake & Output 08/10/19 08/11/19 08/11/19 22:59 06:59 14:59 Intake Total 2861 1960 Output Total 350 200 400 Balance 2511 -200 1560 Lab Results Last 24 Hours: Laboratory Results - last 24 hr 08/10/19 08/10/19 08/11/19 Range/Units 14:24 19:55 04:05 WBC 7.5 (4.5-11.0) K/uL RBC 2.68 L (3.30-5.50) M/uL Hgb 9.3 L (12.0-15.0) g/dL Hct 29.8 L (36.0-48.0) % MCV 111 H (80-98) fL MCH 35 H (27-31) pg MCHC 31 L (32-36) % Plt Count 156 (150-400) K/uL Neut % (Auto) 80 H (36-66) % Lymph % (Auto) 11 L (24-44) % [place] % (Auto) 9 H (2-6) % Eos % (Auto) 1 L (2-4) % Baso % (Auto) 0 (0-1) % Sodium (140-148) mmol/L Potassium 2.8 L* 2.8 L* (3.6-5.2) mmol/L Chloride (100-108) mmol/L Carbon Dioxide (21-32) mmol/L Anion Gap (5.0-14.0) mmol/L BUN (7-18) mg/dL Creatinine (0.6-1.0) mg/dL Est Cr Clr Drug Dosing mL/min Estimated GFR (MDRD) (>60) Glucose (74-106) mg/dL Calcium (8.5-10.1) mg/dL Total Bilirubin (0.2-1.0) mg/dL AST (15-37) U/L ALT (12-78) U/L Alkaline Phosphatase (46-116) U/L Ammonia (11-32) mmol/L Total Protein (6.4-8.2) g/dL Albumin (3.4-5.0) g/dL Globulin (2.3-3.5) g/dL Albumin/Globulin Ratio (1.2-2.2) 08/11/19 08/11/19 Range/Units 04:05 04:05 WBC (4.5-11.0) K/uL RBC (3.30-5.50) M/uL Hgb (12.0-15.0) g/dL Hct (36.0-48.0) % MCV (80-98) fL MCH (27-31) pg MCHC (32-36) % Plt Count (150-400) K/uL Neut % (Auto) (36-66) % Lymph % (Auto) (24-44) % [place] % (Auto) (2-6) % Eos % (Auto) (2-4) % Baso % (Auto) (0-1) % Sodium 144 (140-148) mmol/L Potassium 4.1 (3.6-5.2) mmol/L Chloride 111 H (100-108) mmol/L Carbon Dioxide 26 (21-32) mmol/L Anion Gap 11.1 (5.0-14.0) mmol/L BUN 8 (7-18) mg/dL Creatinine 0.7 (0.6-1.0) mg/dL Est Cr Clr Drug Dosing 77.49 mL/min Estimated GFR (MDRD) > 60 (>60) Glucose 83 (74-106) mg/dL Calcium 7.8 L (8.5-10.1) mg/dL Total Bilirubin 5.4 H (0.2-1.0) mg/dL AST 88 H (15-37) U/L ALT 99 H (12-78) U/L Alkaline Phosphatase 196 H (46-116) U/L Ammonia < 10 L (11-32) mmol/L Total Protein 5.5 L (6.4-8.2) g/dL Albumin 1.8 L (3.4-5.0) g/dL Globulin 3.7 H (2.3-3.5) g/dL Albumin/Globulin Ratio 0.5 L (1.2-2.2) Jonah Results Last 24 Hours: Microbiology 08/10/19 01:30 Aerobic Blood Culture - Preliminary Blood - Venous - Lab Draw Anaerobic Blood Culture - Preliminary NO GROWTH AFTER 1 DAY 08/10/19 00:50 Aerobic Blood Culture - Preliminary Blood - Venous Anaerobic Blood Culture - Preliminary NO GROWTH AFTER 1 DAY Med Orders - Current: Current Medications Calcium Carbonate (Caltrate 600+D 1500 Mg-400 Units) 1 tab PO DAILY [facility] Last Admin: 08/11/19 08:21 Dose: 1 tab Cholecalciferol (Vitamin D3) 50,000 unit PO Q7D [facility] Last Admin: 08/11/19 08:21 Dose: 50,000 unit Cyanocobalamin (Vitamin B12) 1,000 mcg PO DAILY [facility] Last Admin: 08/11/19 08:21 Dose: 1,000 mcg Folic Acid (Folic Acid) 1 mg PO DAILY [facility] Last Admin: 08/11/19 08:21 Dose: 1 mg Ceftriaxone Sodium 1 gm/ (Sodium Chloride) 50 mls @ 100 mls/hr IV Q24H [facility] Last Admin: 08/10/19 15:04 Dose: 100 mls/hr Lactulose (Chronulac) 40 gm PO TID [facility] Last Admin: 08/11/19 08:20 Dose: 40 gm Lorazepam (Ativan) 0 mg IV ASDIRECTED [facility]; Protocol Multivitamins/Minerals (Thera M Plus) 1 tab PO DAILY [facility] Last Admin: 08/11/19 08:21 Dose: 1 tab Prednisolone (Orapred 15 Mg/5ml Soln) 40.5 mg PO DAILY [facility] Stop: 08/14/19 09:01 Last Admin: 08/11/19 08:21 Dose: 40.5 mg Prednisolone (Orapred 15 Mg/5ml Soln) 30 mg PO DAILY [facility] Stop: 08/18/19 09:01 Prednisolone (Orapred 15 Mg/5ml Soln) 19.5 mg PO DAILY [facility] Stop: 08/22/19 09:01 Prednisolone (Orapred 15 Mg/5ml Soln) 13.5 mg PO DAILY [facility] Rifaximin (Xifaxan) 550 mg PO BID [facility] Last Admin: 08/11/19 08:21 Dose: 550 mg Sertraline HCl (Zoloft) 100 mg PO DAILY [facility] Last Admin: 08/11/19 08:21 Dose: 100 mg Tramadol HCl (Ultram) 50 mg PO BEDTIME PRN PRN Reason: Pain Discontinued Medications Lactated Ringer's (Ringers, Lactated) 1,000 mls @ 999 mls/hr IV ASDIRECTED [facility] Last Admin: 08/10/19 00:40 Dose: 999 mls/hr Potassium Chloride 20 meq/ (Premix) 100 mls @ 50 mls/hr IV ONETIME ONE Stop: 08/10/19 03:45 Last Admin: 08/10/19 02:11 Dose: 50 mls/hr Lactated Ringer's (Ringers, Lactated) 1,000 mls @ 250 mls/hr IV BOLUS ONE Stop: 08/10/19 06:15 Last Admin: 08/10/19 02:25 Dose: 250 mls/hr Piperacillin Sod/Tazobactam (Sod 3.375 gm/ Sodium Chloride) 50 mls @ 100 mls/ hr IV ONETIME CLEO Piperacillin Sod/Tazobactam (Sod 3.375 gm/ Sodium Chloride) 50 mls @ 100 mls/ hr IV ONETIME ONE Stop: 08/10/19 03:10 Last Admin: 08/10/19 02:55 Dose: 100 mls/hr Dextrose/Sodium Chloride (Dextrose 5%-Normal Saline) 1,000 mls @ 125 mls/hr IV ASDIRECTED [facility] Stop: 08/11/19 10:46 Last Admin: 08/10/19 08:15 Dose: 125 mls/hr Potassium Chloride 20 meq/Lidocaine HCl 2 ml/ Sodium Chloride 112 mls @ 56 mls/ hr IV Q2H [facility] Stop: 08/10/19 19:59 Last Admin: 08/10/19 17:49 Dose: 56 mls/hr Lactulose (Chronulac) 200 gm RECTAL ONETIME ONE Stop: 08/10/19 02:23 Last Admin: 08/10/19 10:54 Dose: Not Given Lactulose (Chronulac) 10 gm PO ONETIME ONE Stop: 08/10/19 02:23 Last Admin: 08/10/19 02:55 Dose: 10 gm Lidocaine HCl (Xylocaine-Mpf 1%) 2 ml INJECT ONETIME ONE Stop: 08/10/19 01:48 Last Admin: 08/10/19 02:27 Dose: 2 ml Non-Formulary Medication (Multivits W-Min/Ferrous Gluc [Cerovite Liquid]) 9 mg PO DAILY [facility] Ondansetron HCl (Zofran) 4 mg IVPUSH ONETIME ONE Stop: 08/10/19 02:16 Last Admin: 08/10/19 02:33 Dose: 4 mg Potassium Chloride (Klor-Con M20) 40 meq PO ONETIME ONE Stop: 08/10/19 01:45 Last Admin: 08/10/19 02:11 Dose: Not Given Potassium Chloride (Klor-Con M20) 20 meq PO Q2H [facility] Stop: 08/11/19 02:31 Last Admin: 08/11/19 02:27 Dose: 20 meq Prednisolone (Orapred 15 Mg/5ml Soln) 13.5 mg PO DAILY CLEO Tramadol HCl (Ultram) 50 mg PO ONETIME ONE Stop: 08/10/19 11:31 Last Admin: 08/10/19 11:41 Dose: 50 mg - Exam General: Alert, Oriented HEENT: Pupils Equal, Pupils Reactive, EOMI, Mucous Membr. Moist/[place] Neck: Supple Lungs: Clear to Auscultation, Normal Respiratory Effort Cardiovascular: Regular Rate, Regular Rhythm GI/Abdominal Exam: Normal Bowel Sounds, Soft, Non-Tender, No Organomegaly, No Distention, No Abnormal Bruit, No Mass, Pelvis Stable Back Exam: Vertebral Tenderness Extremities: Normal Inspection, Normal Range of Motion, Non-Tender, No Pedal Edema, Normal Capillary Refill Peripheral Pulses: 1+: Radial (L), Radial (R) Skin: Other (icteric) Wound/Incisions: Healing Well Neurological: No New Focal Deficit Psy/Mental Status: Alert, Normal Affect, Normal Mood Sepsis Event Note - Evaluation Sepsis Screening Result: Possible Severe Sepsis Risk - Focused Exam Vital Signs: Vital Signs Temp Pulse Resp BP Pulse Ox 08/11/19 10:56 97.7 F 67 16 114/73 100 08/11/19 07:25 98.6 F 85 16 112/74 100 08/11/19 03:19 97.6 F 73 18 106/71 98 Date Exam was Performed: 08/11/19 Time Exam was Performed: 12:41 - Problem List Review Problem List Initiated/Reviewed/Updated: Yes - My Orders Last 24 Hours: My Active Orders 08/10/19 15:00 [email or web address] [Rocephin] 1 gm Sodium Chloride 0.9% [Normal Saline] 50 ml IV Q24H 08/10/19 17:38 Sequential Compression Device [OM.PC] Routine 08/10/19 17:48 Convert IV to Saline Lock [OM.PC] Routine 08/11/19 09:00 Cholecalciferol (Vitamin D3) [Vitamin D3] 50,000 unit PO Q7D 08/15/19 09:00 prednisoLONE [OraPred 15 MG/5ML Soln] 30 mg PO DAILY 08/19/19 09:00 prednisoLONE [OraPred 15 MG/5ML Soln] 19.5 mg PO DAILY 08/23/19 09:00 prednisoLONE [OraPred 15 MG/5ML Soln] 13.5 mg PO DAILY - Plan Plan:: Assessment/Plan. #1. Alcoholic liver failure with alcoholic hepatitis: Ammonium level <10, Bili from 6.3 to 5.4 #2. Hypokalemia: Correccted to 4.3 from 2.8 #3. History of depression: Will continue with sertraline. #4. Low back pain. X-ray showed Retro-listhesis Plan home to [facility] today.. She will need to continue with Lactulose
--- NOTE | 2019-08-11 12:52 | PCM.DCSUM1 ---
Discharge Summary - Hospital Course Brief History: She is a 54 year old white female who was in [place] for liver failure and hepatitis due to alcohol use she says drinking 1/2 liter daily. She was sent to [facility] for treatment. She walked down the [place] naked and put on a man's clothes and got in his bed and was confused and was then sent to the ER. She was icteric. Diagnosis: Stroke: No - Discharge Data Discharge Date: 08/11/19 Discharge Disposition: DC/Tfer to Inpt Rehab Fac [facility] Condition: Fair - Referral to Home Health Primary Care Physician: PCP None - Patient Summary/Data Hospital Course: We increased th lactulose and corrected the Hypokalemia. The bilirubin came down from 6.3 to 5.4. X-ray of the LS Sine showed retro-listhesis grade one. She was not confused while in the hospital. There was bacterial on a blood culture but no growth as of yet. Will treat if there is evidence of an infection. - Patient Instructions Diet: Heart Healthy Diet Activity: As Tolerated Activity, Other: as deisi Showering/Bathing: May Shower - Discharge Plan Home Medications: Home Meds Calcium Carbonate/Vitamin D3 [Calcium 600 + Vit D 400 Softgl] 1 tab PO DAILY 12/19 [History] Cyanocobalamin (Vitamin B-12) [Vitamin B-12] 1,000 mcg SL DAILY 08/10/19 [ History] Ergocalciferol (Vitamin D2) [Vitamin D2] 1.25 mg PO WEEKLY 08/10/19 [History] Folic Acid 1 mg PO DAILY 08/10/19 [History] Lactulose [Chronulac] 30 gm PO TID 08/10/19 [History] Multivit with Iron,Minerals [Complete Senior] 1 tab PO DAILY 08/10/19 [History] Rifaximin [Xifaxan] 550 mg PO BID 08/10/19 [History] Sertraline [Zoloft] 100 mg PO DAILY 08/10/19 [History] prednisoLONE [Prednisolone] 13.5 mg PO DAILY 08/10/19 [History] prednisoLONE [Prednisolone] 60 ml PO DAILY 08/10/19 [History] traMADol [Ultram] 50 mg PO BEDTIME PRN 08/10/19 [History] Forms: ED Department Discharge Referrals: PCP,None [Primary Care Provider] - - Discharge Summary/Plan Comment DC Time >30 min.: Yes Discharge Summary/Plan Comment: Assessment/Plan. #1. Alcoholic liver failure with alcoholic hepatitis: Ammonium level <10, Bili from 6.3 to 5.4 #2. Hypokalemia: Correccted to 4.3 from 2.8 #3. History of depression: Will continue with sertraline. #4. Low back pain. X-ray showed Retro-listhesis Plan home to [facility] today.. She will need to continue with Lactulose One blood culture showed bacteria and will treat is there is growth as she will be in Treatment at [facility]. - General Info Functional Status: Reports: Pain Controlled - Review of Systems General: Reports: No Symptoms HEENT: Reports: No Symptoms Pulmonary: Reports: No Symptoms Cardiovascular: Reports: No Symptoms Gastrointestinal: Reports: No Symptoms Genitourinary: Reports: No Symptoms Musculoskeletal: Reports: No Symptoms Skin: Reports: No Symptoms Neurological: Reports: No Symptoms Psychiatric: Reports: No Symptoms - Patient Data Vitals - Most Recent: Last Vital Signs Temp 97.7 F 08/11/19 10:56 Pulse 67 08/11/19 10:56 Resp 16 08/11/19 10:56 BP 114/73 08/11/19 10:56 Pulse Ox 100 08/11/19 10:56 Weight - Most Recent: 122 lb I&O - Last 24 hours: Intake & Output 08/10/19 08/11/19 08/11/19 22:59 06:59 14:59 Intake Total 2861 1960 Output Total 350 200 400 Balance 2511 -200 1560 Lab Results - Last 24 hrs: Laboratory Results - last 24 hr 08/10/19 08/10/19 08/11/19 Range/Units 14:24 19:55 04:05 WBC 7.5 (4.5-11.0) K/uL RBC 2.68 L (3.30-5.50) M/uL Hgb 9.3 L (12.0-15.0) g/dL Hct 29.8 L (36.0-48.0) % MCV 111 H (80-98) fL MCH 35 H (27-31) pg MCHC 31 L (32-36) % Plt Count 156 (150-400) K/uL Neut % (Auto) 80 H (36-66) % Lymph % (Auto) 11 L (24-44) % [place] % (Auto) 9 H (2-6) % Eos % (Auto) 1 L (2-4) % Baso % (Auto) 0 (0-1) % Sodium (140-148) mmol/L Potassium 2.8 L* 2.8 L* (3.6-5.2) mmol/L Chloride (100-108) mmol/L Carbon Dioxide (21-32) mmol/L Anion Gap (5.0-14.0) mmol/L BUN (7-18) mg/dL Creatinine (0.6-1.0) mg/dL Est Cr Clr Drug Dosing mL/min Estimated GFR (MDRD) (>60) Glucose (74-106) mg/dL Calcium (8.5-10.1) mg/dL Total Bilirubin (0.2-1.0) mg/dL AST (15-37) U/L ALT (12-78) U/L Alkaline Phosphatase (46-116) U/L Ammonia (11-32) mmol/L Total Protein (6.4-8.2) g/dL Albumin (3.4-5.0) g/dL Globulin (2.3-3.5) g/dL Albumin/Globulin Ratio (1.2-2.2) 08/11/19 08/11/19 Range/Units 04:05 04:05 WBC (4.5-11.0) K/uL RBC (3.30-5.50) M/uL Hgb (12.0-15.0) g/dL Hct (36.0-48.0) % MCV (80-98) fL MCH (27-31) pg MCHC (32-36) % Plt Count (150-400) K/uL Neut % (Auto) (36-66) % Lymph % (Auto) (24-44) % [place] % (Auto) (2-6) % Eos % (Auto) (2-4) % Baso % (Auto) (0-1) % Sodium 144 (140-148) mmol/L Potassium 4.1 (3.6-5.2) mmol/L Chloride 111 H (100-108) mmol/L Carbon Dioxide 26 (21-32) mmol/L Anion Gap 11.1 (5.0-14.0) mmol/L BUN 8 (7-18) mg/dL Creatinine 0.7 (0.6-1.0) mg/dL Est Cr Clr Drug Dosing 77.49 mL/min Estimated GFR (MDRD) > 60 (>60) Glucose 83 (74-106) mg/dL Calcium 7.8 L (8.5-10.1) mg/dL Total Bilirubin 5.4 H (0.2-1.0) mg/dL AST 88 H (15-37) U/L ALT 99 H (12-78) U/L Alkaline Phosphatase 196 H (46-116) U/L Ammonia < 10 L (11-32) mmol/L Total Protein 5.5 L (6.4-8.2) g/dL Albumin 1.8 L (3.4-5.0) g/dL Globulin 3.7 H (2.3-3.5) g/dL Albumin/Globulin Ratio 0.5 L (1.2-2.2) RICHELLE Results - Last 24 hrs: Microbiology 08/10/19 01:30 Aerobic Blood Culture - Preliminary Blood - Venous - Lab Draw Anaerobic Blood Culture - Preliminary NO GROWTH AFTER 1 DAY 08/10/19 00:50 Aerobic Blood Culture - Preliminary Blood - Venous Anaerobic Blood Culture - Preliminary NO GROWTH AFTER 1 DAY Med Orders - Current: Current Medications Calcium Carbonate (Caltrate 600+D 1500 Mg-400 Units) 1 tab PO DAILY [facility] Last Admin: 08/11/19 08:21 Dose: 1 tab Cholecalciferol (Vitamin D3) 50,000 unit PO Q7D [facility] Last Admin: 08/11/19 08:21 Dose: 50,000 unit Cyanocobalamin (Vitamin B12) 1,000 mcg PO DAILY [facility] Last Admin: 08/11/19 08:21 Dose: 1,000 mcg Folic Acid (Folic Acid) 1 mg PO DAILY [facility] Last Admin: 08/11/19 08:21 Dose: 1 mg Ceftriaxone Sodium 1 gm/ (Sodium Chloride) 50 mls @ 100 mls/hr IV Q24H [facility] Last Admin: 08/10/19 15:04 Dose: 100 mls/hr Lactulose (Chronulac) 40 gm PO TID [facility] Last Admin: 08/11/19 08:20 Dose: 40 gm Lorazepam (Ativan) 0 mg IV ASDIRECTED [facility]; Protocol Multivitamins/Minerals (Thera M Plus) 1 tab PO DAILY [facility] Last Admin: 08/11/19 08:21 Dose: 1 tab Prednisolone (Orapred 15 Mg/5ml Soln) 40.5 mg PO DAILY [facility] Stop: 08/14/19 09:01 Last Admin: 08/11/19 08:21 Dose: 40.5 mg Prednisolone (Orapred 15 Mg/5ml Soln) 30 mg PO DAILY [facility] Stop: 08/18/19 09:01 Prednisolone (Orapred 15 Mg/5ml Soln) 19.5 mg PO DAILY [facility] Stop: 08/22/19 09:01 Prednisolone (Orapred 15 Mg/5ml Soln) 13.5 mg PO DAILY [facility] Rifaximin (Xifaxan) 550 mg PO BID [facility] Last Admin: 08/11/19 08:21 Dose: 550 mg Sertraline HCl (Zoloft) 100 mg PO DAILY [facility] Last Admin: 08/11/19 08:21 Dose: 100 mg Tramadol HCl (Ultram) 50 mg PO BEDTIME PRN PRN Reason: Pain Discontinued Medications Lactated Ringer's (Ringers, Lactated) 1,000 mls @ 999 mls/hr IV ASDIRECTED [facility] Last Admin: 08/10/19 00:40 Dose: 999 mls/hr Potassium Chloride 20 meq/ (Premix) 100 mls @ 50 mls/hr IV ONETIME ONE Stop: 08/10/19 03:45 Last Admin: 08/10/19 02:11 Dose: 50 mls/hr Lactated Ringer's (Ringers, Lactated) 1,000 mls @ 250 mls/hr IV BOLUS ONE Stop: 08/10/19 06:15 Last Admin: 08/10/19 02:25 Dose: 250 mls/hr Piperacillin Sod/Tazobactam (Sod 3.375 gm/ Sodium Chloride) 50 mls @ 100 mls/ hr IV ONETIME [facility] Piperacillin Sod/Tazobactam (Sod 3.375 gm/ Sodium Chloride) 50 mls @ 100 mls/ hr IV ONETIME ONE Stop: 08/10/19 03:10 Last Admin: 08/10/19 02:55 Dose: 100 mls/hr Dextrose/Sodium Chloride (Dextrose 5%-Normal Saline) 1,000 mls @ 125 mls/hr IV ASDIRECTED [facility] Stop: 08/11/19 10:46 Last Admin: 08/10/19 08:15 Dose: 125 mls/hr Potassium Chloride 20 meq/Lidocaine HCl 2 ml/ Sodium Chloride 112 mls @ 56 mls/ hr IV Q2H [facility] Stop: 08/10/19 19:59 Last Admin: 08/10/19 17:49 Dose: 56 mls/hr Lactulose (Chronulac) 200 gm RECTAL ONETIME ONE Stop: 08/10/19 02:23 Last Admin: 08/10/19 10:54 Dose: Not Given Lactulose (Chronulac) 10 gm PO ONETIME ONE Stop: 08/10/19 02:23 Last Admin: 08/10/19 02:55 Dose: 10 gm Lidocaine HCl (Xylocaine-Mpf 1%) 2 ml INJECT ONETIME ONE Stop: 08/10/19 01:48 Last Admin: 08/10/19 02:27 Dose: 2 ml Non-Formulary Medication (Multivits W-Min/Ferrous Gluc [Cerovite Liquid]) 9 mg PO DAILY [facility] Ondansetron HCl (Zofran) 4 mg IVPUSH ONETIME ONE Stop: 08/10/19 02:16 Last Admin: 08/10/19 02:33 Dose: 4 mg Potassium Chloride (Klor-Con M20) 40 meq PO ONETIME ONE Stop: 08/10/19 01:45 Last Admin: 08/10/19 02:11 Dose: Not Given Potassium Chloride (Klor-Con M20) 20 meq PO Q2H [facility] Stop: 08/11/19 02:31 Last Admin: 08/11/19 02:27 Dose: 20 meq Prednisolone (Orapred 15 Mg/5ml Soln) 13.5 mg PO DAILY [facility] Tramadol HCl (Ultram) 50 mg PO ONETIME ONE Stop: 08/10/19 11:31 Last Admin: 08/10/19 11:41 Dose: 50 mg - Exam General: Reports: Alert, Oriented HEENT: Reports: Pupils Equal, Pupils Reactive, EOMI, Mucous Membr. Moist/[place] Neck: Reports: Supple Lungs: Reports: Clear to Auscultation, Normal Respiratory Effort Cardiovascular: Reports: Regular Rate, Regular Rhythm GI/Abdominal Exam: Normal Bowel Sounds, Soft, Non-Tender, No Organomegaly, No Distention, No Abnormal Bruit, No Mass, Pelvis Stable Extremities: Normal Inspection, Normal Range of Motion, Non-Tender, No Pedal Edema, Normal Capillary Refill Skin: Reports: Other (Icteric) Neurological: Reports: No New Focal Deficit Psy/Mental Status: Reports: Alert, Normal Affect, Normal Mood
[2019-08-15] MEDS ORDERED: prednisoLONE 15 MG/5 ML Soln UD Cup PO SCH (09:00)
[2019-08-19] MEDS ORDERED: prednisoLONE 15 MG/5 ML Soln UD Cup PO SCH (09:00)
[2019-08-23] MEDS ORDERED: prednisoLONE 15 MG/5 ML Soln UD Cup PO SCH (09:00)
== END 2019-08-11 13:25 | DRG 434 ==
LOC: JP.ED 23:53 → JP.MS 08-10 03:56 → UNDOADMIN 08-10 03:56
PROVIDERS: ADMIT Internal Medicine; ATTEND Internal Medicine
DX: K70.40 Alcoholic hepatic failure without coma (principal); K70.10 Alcoholic hepatitis without ascites; K21.9 Gastro-esophageal reflux disease without esophagitis; E87.6 Hypokalemia; F32.9 Major depressive disorder, single episode, unspecified; D64.9 Anemia, unspecified; M54.5 Low back pain; Z88.6 Allergy status to analgesic agent; Z91.018 Allergy to other foods; Z88.8 Allergy status to other drugs, medicaments and biological substances; Z91.010 Allergy to peanuts; Z79.52 Long term (current) use of systemic steroids; Z79.899 Other long term (current) drug therapy; Z90.49 Acquired absence of other specified parts of digestive tract
CPT/HCPCS: 36415; 71045; 71045-26; 72100; 72100-26; 80053; 81001; 82140; 83605; 83690; 83735; 84132; 84145; 85025; 85610; 86140; 87040; 87077; 87186; 96365; 96366; 99285-25; A9270-GY; J0696; J2001; J2405; J2543; J3480; J7050; J7120